=== PATIENT | male | born 1940 | race Two or more races ===

== ENCOUNTER → 2017-04-28 | Outpatient (CLI) | payer BC ==
--- NOTE | 2017-04-28 17:33 | RADRPT ---
PROCEDURE: Right knee radiographs. CLINICAL INDICATION: Right knee pain. TECHNIQUE: Four views. Weight bearing. Frontal, lateral, oblique, and patellar view. COMPARISON: No prior studies are available for comparison. FINDINGS: There is no fracture or dislocation. There is a soft tissue calcification in the suprapatellar bursa measuring 1.2 x 0.6 cm. There is a small joint effusion. Small osteophytes are noted arising from the joint margins. There is no lytic or blastic lesion. There is no radiopaque foreign body. IMPRESSION: 1. Mild degenerative change. 2. Small joint effusion. 2. Soft tissue calcification in the suprapatellar bursa. RPTAT: QQ .Nirmal Barros MD, MD Date Time Electronically viewed and signed by .Nirmal Barros MD, on 04/28/2017 17:33 .R/
== END | disposition home or self-care (01) ==
LOC: HKI 09:44
PROVIDERS: ATTEND Orthopaedic Surgery
DX: M25.561 Pain in right knee (principal)
CPT/HCPCS: 73564; G0463